=== PATIENT | male | born 1985 | race African-American/Black ===

== ENCOUNTER → 2020-04-25 | Emergency (ER) | payer MEDICAID ==
[~2020-04-25] VITALS: Ht 167.6 cm; Wt 68.0 kg
[~2020-04-25] MED LIST: ETOMIDATE (2MG/ML) 20ML VIAL IV ONE; HYDROmorphone HCL 2 MG/ML VL IV ONE; ONDANSETRON HCL 4 MG/2 ML VIAL IV ONE
[2020-04-26 06:00] VITALS: BP 151/97
== END | disposition home or self-care (01) ==
LOC: ER 17:25
DX: S82.851A Displaced trimalleolar fracture of right lower leg, initial encounter for closed fracture (principal); S93.04XA Dislocation of right ankle joint, initial encounter; X58.XXXA Exposure to other specified factors, initial encounter; Y93.51 Activity, roller skating (inline) and skateboarding; Y92.89 Other specified places as the place of occurrence of the external cause; Y99.8 Other external cause status
CPT/HCPCS: 73610; 73630; 96374; 96375; 99152